=== PATIENT | male | born 1970 | race Caucasian/White ===

== ENCOUNTER 2017-10-14 09:18 | Emergency (ER) | payer OTHER ==
[~2017-10-14] VITALS: Ht 182.9 cm; Wt 92.5 kg
[2017-10-14] MEDS ORDERED: LISINOPRIL5 MG PO (10:10)
[2017-10-14] MEDS ORDERED: COUMADIN5 MG PO (10:10)
[2017-10-14] MEDS ORDERED: COUMADIN6 MG PO (10:10)
[2017-10-14 10:26] VITALS: BP 115/70
== END 2017-10-14 10:34 | disposition home or self-care (01) ==
LOC: EME 09:18
DX: Z76.0 Encounter for issue of repeat prescription (principal); I10 Essential (primary) hypertension; Z95.2 Presence of prosthetic heart valve; Z79.01 Long term (current) use of anticoagulants; R00.2 Palpitations; R42 Dizziness and giddiness
CPT/HCPCS: 93005; 99281; 99284

== ENCOUNTER 2018-04-14 11:41 | Emergency (ER) | payer OTHER ==
[~2018-04-14] VITALS: Ht 180.3 cm; Wt 95.5 kg
[~2018-04-14 11:41] MED LIST: COUMADIN5 MG PO; COUMADIN6 MG PO; LISINOPRIL5 MG PO
[2018-04-14 12:22] LABS: HEMATOCRIT 41.3 % (38.0-50.0); MCH 29.5 PG (29.0-34.0); MCHC 33.9 G/DL (30.0-36.0); MCV 87.1 FL (86-99); PLATELET COUNT 265 K/uL (156-360); RBC DIS.WIDTH-SD 38.7 % (39-53); RED BLOOD COUNT 4.74 M/uL (4.00-5.50); WHITE BLOOD COUNT 8.1 K/uL (4.1-10.2)
[2018-04-14 12:29] LABS: APPEARANCE SL.HAZY ((CLEAR)); BILIRUBIN NEGATIVE; BLOOD MODERATE; COLOR AMBER ((YELLOW)); GLUCOSE (STRIP) NEGATIVE; KETONES 20; LEUKOCYTES LARGE; NITRITE NEGATIVE; PROTEIN (STRIP) 30; SPECIFIC GRAVITY 1.025 (1.000-1.030)
[2018-04-14 12:37] LABS: BACTERIA 1+ /HPF; CALCIUM OXALATE CRYSTALS 2+ /HPF; EPITHELIAL CELLS RARE /HPF; MUCUS 1+ /LPF; RED BLOOD CELLS 15-20 /HPF (0-5); UCUL ADDED? YES; WHITE BLOOD CELLS TNTC /HPF (0-5)
[2018-04-14 13:38] LABS: ALBUMIN 4.3 G/DL (3.2-4.8); ALKALINE PHOSPHATASE 92 IU/L (3-129); ALT (GPT) 15 IU/L (3-49); AST (GOT) 17 IU/L (2-34); CHLORIDE 97 MEQ/L (99-109); GFR ESTIMATE (CALCULATED) > 59 mL/min/ (58.99-99999); GLUCOSE 135 mg/dL (70-99); LIPASE 12 U/L (1.0-51.0); POTASSIUM 4.9 MEQ/L (3.7-5.4); SODIUM 134 MEQ/L (136-147); TOTAL BILIRUBIN 1.9 MG/DL (0.0-1.0); TOTAL PROTEIN 7.8 G/DL (6.4-8.3); UREA NITROGEN (BUN) 9 mg/dL (9-23)
[2018-04-14] MEDS ORDERED: KEFLEX500 MG PO (16:21)
[2018-04-14] MEDS ORDERED: PERCOCET 5/31 TABLET PO (16:22)
[2018-04-14] MEDS ORDERED: ZOFRAN4 MG PO (16:22)
[2018-04-14 17:20] VITALS: BP 140/76
== END 2018-04-14 17:25 | disposition home or self-care (01) ==
LOC: EME 11:41
DX: N39.0 Urinary tract infection, site not specified (principal); N20.0 Calculus of kidney; N28.1 Cyst of kidney, acquired; R10.32 Left lower quadrant pain; Z95.2 Presence of prosthetic heart valve
CPT/HCPCS: 74177; 80053; 81003; 83690; 85027; 87086; 99281; 99285; J0696; J1885; J2405; J7030

== ENCOUNTER 2018-04-16 11:55 | Inpatient (IN) | payer OTHER ==
[~2018-04-16] VITALS: Ht 182.9 cm; Wt 95.6 kg
[~2018-04-16 11:55] MED LIST changes: +KEFLEX500 MG PO; +PERCOCET 5/31 TABLET PO; +ZOFRAN4 MG PO
[2018-04-16 12:42] LABS: HEMATOCRIT 38.9 % (38.0-50.0); HEMOGLOBIN 13.3 G/DL (12.5-16.6); MCH 29.3 PG (29.0-34.0); MCHC 34.2 G/DL (30.0-36.0); MCV 85.7 FL (86-99); PLATELET COUNT 206 K/uL (156-360); RBC DIS.WIDTH-SD 37.7 % (39-53); RED BLOOD COUNT 4.54 M/uL (4.00-5.50); WHITE BLOOD COUNT 6.7 K/uL (4.1-10.2)
[2018-04-16 12:50] LABS: CHLORIDE 95 mEq/L (99-109); SODIUM 133 mEq/L (136-147)
[2018-04-16 12:52] LABS: GLUCOSE 145 mg/dL (70-99); POTASSIUM 3.8 mEq/L (3.7-5.4)
[2018-04-16 12:56] LABS: CREATININE 1.1 mg/dL (0.6-1.3); GFR ESTIMATE (CALCULATED) > 59 mL/min/ (58.99-99999)
[2018-04-16 12:57] LABS: UREA NITROGEN (BUN) 10 mg/dL (9-23)
[2018-04-16 13:16] LABS: INTER. NORMALIZED RATIO 1.5
[2018-04-16 13:19] LABS: PTT 26.3 SEC (25-37)
[2018-04-16 14:14] LABS: APPEARANCE SL.HAZY ((CLEAR)); BILIRUBIN SMALL; BLOOD NEGATIVE; COLOR AMBER ((YELLOW)); GLUCOSE (STRIP) NEGATIVE; KETONES NEGATIVE; LEUKOCYTES MODERATE; NITRITE NEGATIVE; PROTEIN (STRIP) 100; SPECIFIC GRAVITY 1.032 (1.000-1.030)
[2018-04-16 14:30] LABS: BACTERIA RARE /HPF; EPITHELIAL CELLS NONE SEEN /HPF; HYALINE CASTS 0-5 /LPF; MUCUS 3+ /LPF; UCUL ADDED? YES; WHITE BLOOD CELLS TNTC /HPF (0-5)
[2018-04-16] MEDS ORDERED: LISINOPRIL5 MG PO (16:00)
[2018-04-16] MEDS ORDERED: COUMADIN5 MG PO (16:00)
[2018-04-16] MEDS ORDERED: TYLENOL EXTRA500 MG PO (16:00)
[2018-04-16] MEDS ORDERED: DAILY VALUE1 EACH PO (16:01)
[2018-04-16] MEDS ORDERED: CYANOCOBALAM1000 MCG PO (16:01)
[2018-04-16 17:15] VITALS: BP 132/62
[2018-04-16 21:17] VITALS: BP 130/58
[2018-04-17 00:11] VITALS: BP 155/78
[2018-04-17 02:44] LABS: HEMATOCRIT 33.4 % (38.0-50.0); HEMOGLOBIN 11.3 G/DL (12.5-16.6); MCH 29.4 PG (29.0-34.0); MCHC 33.8 G/DL (30.0-36.0); MCV 86.8 FL (86-99); PLATELET COUNT 182 K/uL (156-360); RBC DIS.WIDTH-CV 12.1 % (11.8-14.6); RED BLOOD COUNT 3.85 M/uL (4.00-5.50); WHITE BLOOD COUNT 5.5 K/uL (4.1-10.2)
[2018-04-17 02:46] LABS: INTER. NORMALIZED RATIO 1.6
[2018-04-17 02:56] LABS: CHLORIDE 99 mEq/L (99-109); POTASSIUM 4.3 mEq/L (3.7-5.4); SODIUM 136 mEq/L (136-147)
[2018-04-17 02:58] LABS: GLUCOSE 114 mg/dL (70-99)
[2018-04-17 03:02] LABS: GFR ESTIMATE (CALCULATED) > 59 mL/min/ (58.99-99999)
[2018-04-17 03:03] LABS: UREA NITROGEN (BUN) 10 mg/dL (9-23)
[2018-04-17 03:58] VITALS: BP 153/68
[2018-04-17 07:34] VITALS: BP 133/79
[2018-04-17 10:19] LABS: INTER. NORMALIZED RATIO 1.6
[2018-04-17 10:22] LABS: PTT 32.9 SEC (25-37)
[2018-04-17 11:05] VITALS: BP 120/72
[2018-04-17 15:00] VITALS: BP 142/82
[2018-04-17 20:55] VITALS: BP 144/76
[2018-04-18 00:04] VITALS: BP 145/80
[2018-04-18 03:54] VITALS: BP 142/76
[2018-04-18 08:14] VITALS: BP 136/80
[2018-04-18 10:08] LABS: HEMATOCRIT 35.8 % (38.0-50.0); MCH 28.8 PG (29.0-34.0); MCHC 33.5 G/DL (30.0-36.0); MCV 86.1 FL (86-99); PLATELET COUNT 195 K/uL (156-360); RBC DIS.WIDTH-CV 12.2 % (11.8-14.6); RBC DIS.WIDTH-SD 39.1 % (39-53); RED BLOOD COUNT 4.16 M/uL (4.00-5.50); WHITE BLOOD COUNT 6.2 K/uL (4.1-10.2)
[2018-04-18 10:13] LABS: INTER. NORMALIZED RATIO 1.7
[2018-04-18 10:41] LABS: CHLORIDE 99 MEQ/L (99-109); CREATININE 0.9 MG/DL (0.6-1.3); GFR ESTIMATE (CALCULATED) > 59 mL/min/ (58.99-99999); GLUCOSE 137 mg/dL (70-99); MAGNESIUM 2.1 mg/dl (1.3-2.7); POTASSIUM 3.8 MEQ/L (3.7-5.4); SODIUM 134 MEQ/L (136-147); UREA NITROGEN (BUN) 10 mg/dL (9-23)
[2018-04-18 11:01] VITALS: BP 156/79
[2018-04-18 12:21] LABS: HEPATITIS C ANTIBODY REACTIVE
[2018-04-18 16:00] VITALS: BP 129/77
[2018-04-18 17:19] LABS: INTER. NORMALIZED RATIO 1.7
[2018-04-18 17:22] LABS: PTT 44.4 SEC (25-37)
[2018-04-18 19:47] VITALS: BP 117/75
[2018-04-19 00:13] VITALS: BP 116/61
[2018-04-19 00:53] LABS: INTER. NORMALIZED RATIO 1.8
[2018-04-19 00:56] LABS: PTT 44.6 SEC (25-37)
[2018-04-19 04:07] VITALS: BP 122/74
[2018-04-19 07:08] LABS: HEMATOCRIT 31.6 % (38.0-50.0); HEMOGLOBIN 10.6 G/DL (12.5-16.6); MCH 28.6 PG (29.0-34.0); MCHC 33.5 G/DL (30.0-36.0); MCV 85.4 FL (86-99); PLATELET COUNT 189 K/uL (156-360); RBC DIS.WIDTH-CV 12.3 % (11.8-14.6); RBC DIS.WIDTH-SD 38.3 % (39-53)
[2018-04-19 07:47] VITALS: BP 117/68
[2018-04-19 08:18] LABS: CHLORIDE 100 MEQ/L (99-109); CREATININE 0.9 MG/DL (0.6-1.3); GFR ESTIMATE (CALCULATED) > 59 mL/min/ (58.99-99999); GLUCOSE 115 mg/dL (70-99); MAGNESIUM 1.9 mg/dl (1.3-2.7); POTASSIUM 4.1 MEQ/L (3.7-5.4); SODIUM 136 MEQ/L (136-147); UREA NITROGEN (BUN) 7 mg/dL (9-23)
[2018-04-19 12:07] VITALS: BP 135/86
[2018-04-19 13:28] LABS: INTER. NORMALIZED RATIO 1.9
[2018-04-19 13:31] LABS: PTT 50.4 SEC (25-37)
[2018-04-19 16:06] VITALS: BP 120/74
[2018-04-19 19:30] LABS: INTER. NORMALIZED RATIO 2.1
[2018-04-19 19:33] LABS: PTT 63.1 SEC (25-37)
[2018-04-19 19:36] VITALS: BP 132/85
[2018-04-20 00:21] VITALS: BP 125/72
[2018-04-20 04:09] VITALS: BP 152/75
[2018-04-20 06:43] LABS: HEMATOCRIT 33.5 % (38.0-50.0); HEMOGLOBIN 11.1 G/DL (12.5-16.6); MCH 28.4 PG (29.0-34.0); MCHC 33.1 G/DL (30.0-36.0); MCV 85.7 FL (86-99); PLATELET COUNT 220 K/uL (156-360); RBC DIS.WIDTH-CV 12.3 % (11.8-14.6); RBC DIS.WIDTH-SD 38.2 % (39-53); RED BLOOD COUNT 3.91 M/uL (4.00-5.50); WHITE BLOOD COUNT 5.6 K/uL (4.1-10.2)
[2018-04-20 06:49] LABS: INTER. NORMALIZED RATIO 2.4
[2018-04-20 07:08] LABS: CHLORIDE 104 MEQ/L (99-109); CREATININE 0.8 MG/DL (0.6-1.3); GFR ESTIMATE (CALCULATED) > 59 mL/min/ (58.99-99999); GLUCOSE 115 mg/dL (70-99); MAGNESIUM 2.1 mg/dl (1.3-2.7); POTASSIUM 4.2 MEQ/L (3.7-5.4); PTT 61.4 SEC (25-37); SODIUM 140 MEQ/L (136-147); UREA NITROGEN (BUN) 9 mg/dL (9-23)
[2018-04-20 08:38] VITALS: BP 128/71
[2018-04-20 12:20] VITALS: BP 136/79
[2018-04-20] MEDS ORDERED: CIPRO500 MG PO (15:10)
[2018-04-20 16:06] VITALS: BP 142/70
== END 2018-04-20 16:43 | disposition home or self-care (01) | DRG 690 ==
LOC: EME 11:55 → EDOF 15:00 → 3EAST 15:00 → ENRESERV 15:04 → 3EAST 16:53
PROVIDERS: Hospitalist; Internal Medicine; Internal Medicine Interventional Cardiology; Nurse Practitioner Adult Health; Nurse Practitioner Family
DX: N15.1 Renal and perinephric abscess (principal); E86.0 Dehydration; F19.10 Other psychoactive substance abuse, uncomplicated; I50.9 Heart failure, unspecified; I11.0 Hypertensive heart disease with heart failure; R50.9 Fever, unspecified; N20.0 Calculus of kidney; Z79.01 Long term (current) use of anticoagulants; Z95.3 Presence of xenogenic heart valve; Z79.899 Other long term (current) drug therapy
CPT/HCPCS: 49405; 70140; 70450; 74183; 80048; 81003; 83605; 83735; 85027; 85610; 85730; 86803; 87040; 87070; 87075; 87077; 87086; 87186; 87205; 93005; 99281; 99285; J0696; J1885; J2270; J2405; J3010; J7030; S0030